=== PATIENT | female | born 1970 | race Caucasian/White ===

== ENCOUNTER 2024-06-14 15:29 | Emergency (ER) | payer OTHER ==
[2024-06-14] MEDS ORDERED: dexAMETHasone 10 MG/ML VIAL ONE (17:17)
[2024-06-14] MEDS ORDERED: KETOROLAC 30 MG/ML INJ ONE (17:17)
[2024-06-14] MEDS ORDERED: DIAZEPAM 5 MG TABLET ONE (17:17)
[2024-06-14 17:56] LABS: Specific Gravity > 1.030 (1.005-1.030); Urine Bacteria None Seen /HPF (<20); Urine Bilirubin NEGATIVE (Negative); Urine Blood Negative (Negative); Urine Clarity Extremely Turbid (Clear); Urine Color Yellow (Yellow); Urine Culture Reflex Order NOT NEEDED; Urine Glucose TRACE (Negative); Urine Ketones TRACE (Negative); Urine Micro Reflex YN NO BILL MICROSCOPIC; Urine Mucus 2+ /HPF (None Seen); Urine Nitrite NEGATIVE (Negative); Urine Protein 2+ (Negative); Urine RBC <5 /HPF (None Seen); Urine Urobilinogen Normal (Normal); Urine WBC <5 /HPF (<5)
--- NOTE | 2024-06-14 18:08 | RAD REPORT ---
EXAM DESCRIPTION: CT - Spine Lumbar Wo Con - 06/14/2024 4:59 pm CLINICAL HISTORY: Lower back pain;Radiculopathy TECHNIQUE: Axial noncontrast CT imaging of the lumbar spine was performed with coronal and sagittal re-formatted images. All CT scans are performed using dose optimization technique as appropriate and may include automated exposure control or mA/KV adjustment according to patient size. FINDINGS: No acute lumbar spine fracture seen. No aggressive marrow pattern or malalignment. Paraspinal tissues are normal in thickness. No paraspinal abscess or hematoma seen. Intervertebral disc disease assessment is inherently limited by CT. Within these limitations, no high -grade canal stenosis suspected. Moderate facet remodeling at L5-S1. No significant bony canal or for aminal stenosis. IMPRESSION: No acute fracture or subluxation. Mild lumbar spine degenerative changes at L5-S1. No significant bony canal or foraminal stenosis. Please consider MRI follow-up for assessment of disc disease or neural impingement if clinically desired.
[2024-06-14] MEDS ORDERED: MORPHINE 4 MG/ML SYR ONE (19:23)
--- NOTE | 2024-06-14 20:39 | ER ---
Nurse's Notes [facility] Name: Vanda Wu Age: 53 yrs Sex: Female : 1970 Arrival Date: 06/14/2024 Time: 15:29 Bed 2 Private MD: Diagnosis: Lumbago with sciatica, left side Presentation: 06/14 15:49 Chief complaint: Patient states: MIDDLE SPINE BACK PAIN AND HIP PAIN RADIATES DOWN LEGS db STATES TRIED OTC MEDICATION AND MEDICATION NOT HELPING. UNABLE TO HAVE A BOWEL MOVEMENT DUE TO BEARING DOWN MAKES PAIN WORSE. NAUSEA DUE TO PAIN. Coronavirus screen: Client denies travel out of the [place] in the last 14 days. At this time, the client does not indicate any symptoms associated with coronavirus-19. Ebola Screen: Patient negative for fever greater than or equal to 101.5 degrees Fahrenheit, and additional compatible Ebola Virus Disease symptoms Patient denies exposure to infectious person. Patient denies travel to an Ebola-affected area in the 21 days before illness onset. No symptoms or risks identified at this time. Initial Sepsis Screen: Does the patient meet any 2 criteria? No. Patient's initial sepsis screen is negative. Does the patient have a suspected source of infection? No. Patient's initial sepsis screen is negative. Risk Assessment: Do you want to hurt yourself or someone else? Patient reports no desire to harm self or others. Onset of symptoms was June 14, 2024. 15:49 Method Of Arrival: Ambulatory db 15:49 Acuity: CURTIS 3 db Triage Assessment: 15:52 General: Appears in no apparent distress. uncomfortable, Behavior is calm, cooperative. db Pain: Complains of pain in back, buttocks, right leg and left leg. Neuro: Level of Consciousness is awake, alert, obeys commands, Oriented to person, place, time, situation. Respiratory: Airway is patent Respiratory effort is even, unlabored, Respiratory pattern is regular, symmetrical. Musculoskeletal: Circulation, motion, and sensation intact. Capillary refill < 3 seconds, Range of motion: intact in all extremities. 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 - Infectious Disease History:: Denies. - Social history:: Smoking status: Patient denies any tobacco usage or history of. Screenin:32 [facility] ED Fall Risk Assessment (Adult) History of falling in the last 3 months, pc2 including since admission No falls in past 3 months (0 pts) Confusion or Disorientation No (0 pts) Intoxicated or Sedated No (0 pts) Impaired Gait No (0 pts) Mobility Assist Device Used No (0 pt) Altered Elimination No (0 pt) Score/Fall Risk Level 0 - 2 = Low Risk Oriented to surroundings, Maintained a safe environment, Hourly rounding (assess needs \T\ fall precautionary measures) done. Abuse screen: Denies threats or abuse. Denies injuries from another. Nutritional screening: No deficits noted. Tuberculosis screening: No symptoms or risk factors identified. Assessment: 17:42 Reassessment: No changes from previously documented assessment. Patient and/or family ap3 updated on plan of care and expected duration. Pain level reassessed. 17:58 Reassessment: Patient and/or family updated on plan of care and expected duration. Pain tm6 level reassessed. Patient is alert, oriented x 3, equal unlabored respirations, skin warm/dry/pink. Neuro: Level of Consciousness is awake, alert, obeys commands, Oriented to person, place, time, situation. 19:31 Reassessment: Patient appears in no apparent distress at this time. Patient and/or pc2 family updated on plan of care and expected duration. Pain level reassessed. General: Appears in no apparent distress. comfortable, well groomed, Behavior is calm, cooperative, appropriate for age. Pain: Complains of pain in right leg Pain currently is 7 out of 10 on a pain scale. Neuro: Level of Consciousness is awake, alert, obeys commands, Oriented to person, place, time, situation. Cardiovascular: Patient's skin is warm and dry. Respiratory: Airway is patent Respiratory effort is even, unlabored, Respiratory pattern is regular, symmetrical. GI: No signs and/or symptoms were reported involving the gastrointestinal system. : No signs and/or symptoms were reported regarding the genitourinary system. EENT: No signs and/or symptoms were reported regarding the EENT system. Derm: No signs and/or symptoms reported regarding the dermatologic system. 20:43 Reassessment: Patient and/or family updated on plan of care and expected duration. Pain ha1 level reassessed. Patient is alert, oriented x 3, equal unlabored respirations, skin warm/dry/pink. Patient states feeling better. Patient states symptoms have improved. Vital Signs: 15:49 BP 119 / 67; Pulse 100; Resp 18; Temp 97.8; Pulse Ox 97% ; db 17:55 BP 124 / 64; Pulse 92; Pulse Ox 97% on R/A; tm6 19:32 BP 136 / 98; Pulse 83; Resp 16; Pulse Ox 98% on R/A; pc2 20:00 BP 130 / 66; Pulse 79; Resp 17 S; Pulse Ox 96% on R/A; ha1 20:43 BP 132 / 71; Pulse 76; Resp 17 S; Pulse Ox 97% on R/A; ha1 ED Course: 15:31 Patient arrived in ED. im 15:32 Jasmina Jorge PA-C is PHCP. sb4 15:32 Froilan Middleton MD is Attending Physician. sb4 15:52 Triage completed. db 15:52 Arm band placed on right wrist. Patient placed in waiting room. db 17:01 CT Lumbar Spine Wo Con In Process Unspecified. EDMS 17:10 Patient placed in an exam room, on a stretcher. ll1 17:42 UAM Sent. ap3 17:42 Urine collected: clean catch specimen, corine colored, Amount Voided: 250mL. ap3 19:31 Margie Bailon, RN is Primary Nurse. pc2 19:33 Patient has correct armband on for positive identification. Bed in low position. Call pc2 light in reach. Side rails up X 1. Provided Education on: POC and time frame. 19:33 No provider procedures requiring assistance completed. pc2 21:00 Patient did not have IV access during this emergency room visit. ha1 Administered Medications: 17:24 Drug: Dexamethasone IM 10 mg IM once Route: IM; Site: left gluteus; ll1 19:00 Follow up: Response: No adverse reaction ha1 17:24 Drug: Ketorolac IM 30 mg IM once {Note: RASS 0.} Route: IM; Site: left vastus lateralis;ll1 19:00 Follow up: Response: No adverse reaction ha1 17:25 Drug: Diazepam PO 5 mg PO once {Note: LEAH 0.} Route: PO; ll1 19:00 Follow up: Response: No adverse reaction ha1 19:31 Drug: morphine IM 4 mg IM once Route: IM; Site: right deltoid; pc2 20:00 Follow up: Response: No adverse reaction; Marked relief of symptoms; Pain is decreased; ha1 RASS: Alert and Calm (0) 20:42 Drug: HYDROcodone-acetaminophen PO 5 mg-325 mg 2 tabs PO once Route: PO; ha1 20:56 Follow up: Response: No adverse reaction; Pain is decreased ha1 Medication: 19:33 VIS not applicable for this client. pc2 Outcome: 20:38 Discharge ordered by . sb4 20:59 Discharged to home ambulatory, with family, ha1 20:59 Condition: stable 20:59 Discharge instructions given to patient, family, Instructed on discharge instructions, follow up and referral plans. medication usage, Demonstrated understanding of instructions, follow-up care, medications, Prescriptions given X 3, 21:00 Patient left the ED. ha1 Signatures: Dispatcher [employer] EDMS Bethany Vasquez RN RN ap3 Lewis, Lynsay, RN RN ll1 Ida Ruvalcaba RN RN ha1 Erica Herrera RN RN Jasmina Traore PA-C PAJose sb4 Bella Tello Tawney RN RN tm6 Margie Bailon, RN RN pc2 Corrections: (The following items were deleted from the chart) 15:52 15:49 Chief complaint: Patient states: MIDDLE SPINE BACK PAIN AND HIP PAIN RADIATES db DOWN LEGS STATES TRIED OTC MEDICATION AND MEDICATION NOT HELPING. UNABLE TO HAVE A BOWEL MOVEMENT DUE TO BEARING DOWN MAKES PAIN WORSE db 20:43 19:32 BP 136 / 98; Pulse 3bpm; Resp 16bpm; Pulse Ox 98% RA; pc2 pc2
--- NOTE | 2024-06-14 20:39 | EDPHYS ---
Physician Documentation [facility] Name: Vanda Wu Age: 53 yrs Sex: Female : 1970 Arrival Date: 06/14/2024 Time: 15:29 Bed 2 Private MD: ED Physician Froilan Middleton HPI: 06/14 16:08 This 53 yrs old Female presents to ER via Ambulatory with complaints of Back Pain, Hip sb4 Pain. 16:25 The patient presents with pain that is acute, with no known mechanism of injury. The sb4 symptoms are located in the low back. Onset: The symptoms/episode began/occurred 2 day(s) ago. The pain radiates to the lateral aspect of right thigh and dorsum of right foot and buttocks. Associated signs and symptoms: The patient has no apparent associated signs or symptoms. The problem was sustained without known cause. Modifying factors: The patient symptoms are alleviated by nothing, the patient symptoms are aggravated by any movement. The patient has not experienced similar symptoms in the past. 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 - Infectious Disease History:: Denies. - Social history:: Smoking status: Patient denies any tobacco usage or history of. ROS: 16:29 Constitutional: Negative for fever, chills, and weight loss, sb4 16:29 Back: Positive for pain at rest, pain with movement, radiated pain, 16:29 All other systems are negative, Exam: 17:13 Constitutional: This is a well developed, well nourished patient who is awake, alert, sb4 and in no acute distress. Head/Face: Normocephalic, atraumatic. Eyes: Extra-ocular motions intact. Periorbital areas with no swelling, redness, or edema. ENT: Mucous membranes moist. 17:13 Back: ROM is painful, with rotation to the right, normal spinal alignment noted, CVA tenderness, is absent, vertebral tenderness, is not appreciated, muscle spasm, is not present, 17:13 Neuro: Motor: moves all fours, Sensation: is normal, Gait: is steady, appropriate for age, Vital Signs: 15:49 BP 119 / 67; Pulse 100; Resp 18; Temp 97.8; Pulse Ox 97% ; db 17:55 BP 124 / 64; Pulse 92; Pulse Ox 97% on R/A; tm6 19:32 BP 136 / 98; Pulse 83; Resp 16; Pulse Ox 98% on R/A; pc2 20:00 BP 130 / 66; Pulse 79; Resp 17 S; Pulse Ox 96% on R/A; ha1 20:43 BP 132 / 71; Pulse 76; Resp 17 S; Pulse Ox 97% on R/A; ha1 MDM: 15:48 Patient medically screened. sb4 20:38 Data reviewed: vital signs, nurses notes, lab test result(s), radiologic studies, and sb4 as a result, I will discharge patient. Counseling: I had a detailed discussion with the patient and/or guardian regarding the historical points, exam findings, and any diagnostic results supporting the discharge/admit diagnosis, lab results, radiology results, the need for outpatient follow up, for definitive care, to return to the emergency department if symptoms worsen or persist or if there are any questions or concerns that arise at home. 06/14 16:08 Order name: UAConner; Complete Time: 17:57 sb4 06/14 15:55 Order name: CT Lumbar Spine Wo Con; Complete Time: 18:11 sb4 Administered Medications: 17:24 Drug: Dexamethasone IM 10 mg IM once Route: IM; Site: left gluteus; ll1 19:00 Follow up: Response: No adverse reaction ha1 17:24 Drug: Ketorolac IM 30 mg IM once {Note: RASS 0.} Route: IM; Site: left vastus lateralis;ll1 19:00 Follow up: Response: No adverse reaction ha1 17:25 Drug: Diazepam PO 5 mg PO once {Note: LEAH 0.} Route: PO; ll1 19:00 Follow up: Response: No adverse reaction ha1 19:31 Drug: morphine IM 4 mg IM once Route: IM; Site: right deltoid; pc2 20:00 Follow up: Response: No adverse reaction; Marked relief of symptoms; Pain is decreased; ha1 RASS: Alert and Calm (0) 20:42 Drug: HYDROcodone-acetaminophen PO 5 mg-325 mg 2 tabs PO once Route: PO; ha1 20:56 Follow up: Response: No adverse reaction; Pain is decreased ha1 Disposition Summary: 06/14/24 20:38 Discharge Ordered Notes: Location: Home sb4 Problem: new sb4 Symptoms: have improved sb4 Condition: Stable sb4 Diagnosis - Lumbago with sciatica, left side sb4 Followup: sb4 - With: Private Physician - When: As needed - Reason: Recheck today's complaints, Re-evaluation by your physician Discharge Instructions: - Discharge Summary Sheet sb4 - Sciatica sb4 - Back Exercises, [id number] sb4 Forms: - Patient Portal Instructions sb4 - Leadership Thank You Letter sb4 Prescriptions: - Cyclobenzaprine 10 mg Oral Tablet - take 1 tablet ORAL route every 8 hours As needed; 30 tablet; Refills: 0, sb4 Product Selection Permitted - Diclofenac Sodium 75 mg Oral Tablet Sustained Release - take 1 tablet ORAL route 2 times per day; 30 tablet; Refills: 0, Product sb4 Selection Permitted - Medrol (Yuniel) 4 mg Oral Tablets, Dose Pack - take 1 tablet ORAL route as directed - follow package instructions; 1 packet; sb4 Refills: 0, Product Selection Permitted Signatures: Dispatcher [employer] Js Arguelles RN RN ll1 Ida Ruvalcaba RN RN ha1 Erica Herrera, RN RN Jasmina Traore, PAJose PAJose sb4 Margie Bailon, RN RN pc2
[2024-06-14] MEDS ORDERED: HYDROCODONE/APAP 5/325 MG TAB ONE (20:47)
[2024-06-14 21:04] VITALS: TEMP 97.8
[2024-06-14 21:09] VITALS: BP 132/71; O2SAT 97
== END 2024-06-14 21:00 | disposition home or self-care (01) ==
LOC: ER 15:29
DX: M54.42 Lumbago with sciatica, left side (principal)
CPT/HCPCS: 81001; 72131; J1100